=== PATIENT | male | born 1970 | race Caucasian/White ===

== ENCOUNTER 2017-07-29 17:39 | Emergency (ER) | payer BC ==
[~2017-07-29] VITALS: Ht 170.2 cm; Wt 96.9 kg
[~2017-07-29 17:39] MED LIST: METOPROLOL SUC100 MG PO
[2017-07-29 19:26] LABS: HEMATOCRIT 44.6 % (38.0-50.0); HEMOGLOBIN 16.3 G/DL (12.5-16.6); MCHC 36.5 G/DL (30.0-36.0); MCV 87.6 FL (86-99); PLATELET COUNT 195 K/uL (156-360); RBC DIS.WIDTH-CV 11.8 % (11.8-14.6); RBC DIS.WIDTH-SD 37.7 % (39-53); RED BLOOD COUNT 5.09 M/uL (4.00-5.50); WHITE BLOOD COUNT 7.4 K/uL (4.1-10.2)
[2017-07-29 19:39] LABS: ALBUMIN 4.2 g/dL (3.2-4.8); CHLORIDE 104 mEq/L (99-109); POTASSIUM 3.7 mEq/L (3.7-5.4); SODIUM 140 mEq/L (136-147)
[2017-07-29 19:41] LABS: GLUCOSE 107 mg/dL (70-99); TOTAL PROTEIN 7.1 g/dL (6.4-8.3)
[2017-07-29 19:43] LABS: TOTAL BILIRUBIN 1.2 mg/dL (0.0-1.0)
[2017-07-29 19:45] LABS: ALKALINE PHOSPHATASE 89 IU/L (3-129); CREATININE 0.9 mg/dL (0.6-1.3); GFR ESTIMATE (CALCULATED) > 59 mL/min/ (58.99-99999)
[2017-07-29 19:46] LABS: AST (GOT) 36 IU/L (2-34); UREA NITROGEN (BUN) 22 mg/dL (9-23)
[2017-07-29 19:48] LABS: ALT (GPT) 62 IU/L (3-49)
[2017-07-29 20:16] LABS: LIPASE 15 U/L (1.0-51.0)
[2017-07-29] MEDS ORDERED: AUGMENTIN875 MG PO (22:58)
[2017-07-29] MEDS ORDERED: MECLIZINE HCL25 MG PO (22:58)
[2017-07-29 23:25] VITALS: BP 112/79
[2017-07-30 10:06] LABS: LYME DISEASE SEROLOGY SCREEN NEGATIVE (NEGATIVE)
== END 2017-07-29 23:25 | disposition home or self-care (01) ==
LOC: EME 17:39
PROVIDERS: Physician Assistant
DX: R42 Dizziness and giddiness (principal); M26.69 Other specified disorders of temporomandibular joint; R53.1 Weakness; E78.5 Hyperlipidemia, unspecified; I10 Essential (primary) hypertension; Z88.5 Allergy status to narcotic agent
CPT/HCPCS: 70450; 70551; 80053; 83690; 85027; 86618; 93005; 99281; 99284